=== PATIENT | female | born 1995 | race African-American/Black ===

== ENCOUNTER 2019-10-19 10:24 | Emergency (ER) | payer SELFPAY ==
[~2019-10-19] VITALS: Ht 157.5 cm; Wt 48.3 kg
[2019-10-19 11:34] VITALS: BP 130/70
[2019-10-19] MEDS ORDERED: METH4TAB2 PO (11:43)
[2019-10-19] MEDS ORDERED: DIPH25TA64 PO (11:43)
--- NOTE | 2019-10-19 11:43 | PHYS DOC ---
Past Medical History Past Medical History: No Pertinent History Smoking Status: Never Smoker Alcohol Use: None Social History Narrative: patient advised she just tried marijuana for 1st time 2 days ago General Adult EDM: Chief Complaint: VAGINAL PROBLEM HPI: HPI: Patient is a 23 year old female who presents with patient states a couple days ago she had sex with a different condom than usual. She states that she is very sensitive in the vaginal area especially to new soaps. She states she usually uses Dove unscented. She states that yesterday she also used a lady that was scented soap. She is very swollen and itchy. She [facility] and [facility] gave her clotrimazole cream to use. She is used it once and states is not made it any better. Patient denies any vaginal discharge, STD concerns, or abnormal odors. Patient denies any kind of abdominal pain, nausea, vomiting or fevers or dysuria. Review of Systems: Review of Systems: : Denies dysuria. Vagial irritation[] Heart Score: Risk Factors: Risk Factors: DM, Current or recent (<one month) smoker, HTN, HLP, family history of CAD, obesity. Risk Scores: Score 0 - 3: 2.5% MACE over next 6 weeks - Discharge Home Score 4 - 6: 20.3% MACE over next 6 weeks - Admit for Clinical Observation Score 7 - 10: 72.7% MACE over next 6 weeks - Early Invasive Strategies Physical Exam: PE: Constitutional: Well developed, well nourished, no acute distress, non-toxic appearance. [] HENT: Normocephalic, atraumatic, bilateral external ears normal, oropharynx moist, no oral exudates, nose normal. [] Eyes: PERRLA, EOMI, conjunctiva normal, no discharge. [] Neck: Normal range of motion, no tenderness, supple, no stridor. [] Cardiovascular:Heart rate regular rhythm, no murmur [] Lungs & Thorax: Bilateral breath sounds clear to auscultation [] Abdomen: Bowel sounds normal, soft, no tenderness, no masses, no pulsatile masses. [] Skin: Warm, dry, no erythema, no rash. Vaginal irritation and swelling[] Back: No tenderness, no CVA tenderness. [] Extremities: No tenderness, no cyanosis, no clubbing, ROM intact, no edema. [] Neurologic: Alert and oriented X 3, normal motor function, normal sensory function, no focal deficits noted. [] Psychologic: Affect normal, judgement normal, mood normal. [] Current Patient Data: Labs: Laboratory Tests Test 10/19/19 11:20 POC Urine HCG, Qualitative Hcg negative (Negative) Vital Signs: Vital Signs Date Time Temp Pulse Resp B/P (MAP) Pulse Ox O2 Delivery O2 Flow Rate FiO2 10/19/19 10:56 97.9 72 16 129/63 (85) 99 Room Air 97.9 EKG: EKG: [] Radiology/Procedures: Radiology/Procedures: [] Course & Med Decision Making: Course & Med Decision Making Pertinent Labs and Imaging studies reviewed. (See chart for details) Pelvic Exam: [facility] present Abdomen: Nontender External Genitalia: Normal Skin, swollen 2+, irratated Speculum: Normal vaginal mucosa, normal cervical discharge Bimanual: No adnexal masses or tenderness, No CMT Patient is told to not use any new soaps or anything that is scented. She is told that she probably should not use the same kind a condom. Patient is told that she can keep using the Chlortrimazole cream but I will add in a steroid because of the 2-3+ swelling. [] Dragon Disclaimer: Dragon Disclaimer: This electronic medical record was generated, in whole or in part, using a voice recognition dictation system. Departure Departure Impression: Primary Impression: Vaginal itching Additional Impression: Vaginal irritation Disposition: 01 HOME, SELF-CARE Condition: STABLE Referrals: NO PCP (PCP) DAMIEN HEARN Jr, MD Patient Instructions: Vaginitis, [id number] Additional Instructions: Follow up with a heeler if remains symptomatic. Take medications with food and as prescribed. Do not use scented soaps or a different kind a condom. Scripts Diphenhydramine Hcl (BENADRYL ALLERGY) 25 Mg Tablet 25 MG PO Q6HRS for 5 Days, #20 TAB Prov: IFRAH MEZA APRN 10/19/19 Methylprednisolone (MEDROL) 4 Mg Tab.ds.pk 1 PKG PO UD, #1 PKG Prov: IFRAH MEZA APRN 10/19/19 IFRAH MEZA APRN October 19, 2019 11:43
== END 2019-10-19 11:52 | disposition home or self-care (01) ==
LOC: ER 10:24
DX: N89.8 Other specified noninflammatory disorders of vagina (principal); L29.2 Pruritus vulvae; F12.90 Cannabis use, unspecified, uncomplicated
CPT/HCPCS: 81025; 99284